=== PATIENT | male | born 1975 | race Two or more races ===

== ENCOUNTER 2021-05-30 16:53 | Inpatient (IN) | payer OTHER ==
[2021-05-30 20:01] VITALS: BMI 231.6
[2021-05-30] MEDS ORDERED: MELATONIN 5 MG TABLETS PO SCH (22:00)
[2021-05-30] MEDS ORDERED: guaiFENesin 200 MG/10 ML 10 ML UNIT-DOSE CUPS PO PRN (22:16)
[2021-05-30] MEDS ORDERED: P-EPHED 60MG/TRIPROLIDI 2.5MG TABLET PO PRN (22:16)
[2021-05-30] MEDS ORDERED: MAGNESIUM CITRATE 300 ML BOTTLE PO PRN (22:16)
[2021-05-30] MEDS ORDERED: MAG HYDROX/AL HYDROX/SIMETH 30 ML UNIT-DOSE CUP PO PRN (22:16)
[2021-05-30] MEDS ORDERED: hydrOXYzine PAMOATE 25 MG CAPSULE (FP) PO PRN (22:16)
[2021-05-30] MEDS ORDERED: IBUPROFEN 400 MG TABLET (FP) PO PRN (22:16)
[2021-05-30] MEDS ORDERED: ACETAMINOPHEN 325 MG TABLET (FP) PO PRN (22:16)
[2021-05-30] MEDS ORDERED: LOPERAMIDE HCL 2 MG CAPSULE PO PRN (22:16)
[2021-05-30] MEDS ORDERED: MAGNESIUM HYDROX 2400MG/30ML ORAL SUSPENSION 30 ML CUP PO PRN (22:16)
[2021-05-31] MEDS ORDERED: TUBERCULIN PPD 5 TU/0.1ML VIAL ID ONE (01:11)
[2021-05-31] MEDS: PRENATAL VITAMINS W/ FOLIC ACID TABLET (FP) PO SCH (10:02)
[2021-05-31 10:46] LABS: HEMATOCRIT 33.6 % (35.4-49); HEMOGLOBIN 11.6 GM/dL (11.7-16.9); MCHC 34.6 g/dl (32.0-35.9); MEAN CELL VOLUME 92.4 fl (80-96); MEAN PLT VOLUME 8.8 fl (7.5-11.1); PLATELET COUNT 257 10^3/uL (134-434); RBC 3.64 M/mm3 (4.00-5.60); RDW 14.9 % (11.9-15.9)
[2021-05-31 10:51] LABS: PH,URINE 6.5 (5.0-8.0); URINE APPEARANCE CLEAR; URINE BILIRUBIN NEGATIVE (NEGATIVE); URINE COLOR YELLOW; URINE GLUCOSE (UA) NEGATIVE (NEGATIVE); URINE KETONE NEGATIVE (NEGATIVE); URINE LEUK ESTERASE NEGATIVE (NEGATIVE); URINE NITRITE NEGATIVE (NEGATIVE); URINE PROTEIN NEGATIVE (NEGATIVE)
[2021-05-31 11:06] LABS: CREATININE 0.8 mg/dL (0.55-1.3)
[2021-05-31 11:07] LABS: TOT PROT 6.4 g/dl (6.4-8.2)
[2021-05-31 11:08] LABS: BILIRUBIN,TOTAL 0.2 mg/dL (0.2-1)
[2021-05-31 11:12] LABS: BLOOD UREA NITROGEN 15.1 mg/dL (7-18)
[2021-05-31 11:14] LABS: CALCIUM 8.5 mg/dL (8.5-10.1)
[2021-05-31] MEDS: BICTEGRAV/EMTRICIT/TENOFOV (BIKTARVY) 50-200-25 MG TABLET PO SCH (12:02)
[2021-05-31] MEDS ORDERED: BACLOFEN 10 MG TABLET (FP) PO PRN (15:54)
[2021-05-31] MEDS: THIAMINE HCL 100 MG TABLET (FP) PO SCH (21:11)
[2021-05-31] MEDS: QUEtiapine FUMARATE 50 MG TABLET PO SCH (21:12)
[2021-05-31] MEDS: TOPIRAMATE 100 MG TABLET PO SCH (21:14)
[2021-06-01] MEDS: BICTEGRAV/EMTRICIT/TENOFOV (BIKTARVY) 50-200-25 MG TABLET PO SCH (09:00)
[2021-06-01] MEDS: TOPIRAMATE 100 MG TABLET PO SCH ×2 (09:49→21:04)
[2021-06-01] MEDS: PANTOPRAZOLE 40 MG TABLET PO SCH (09:49)
[2021-06-01] MEDS: PRENATAL VITAMINS W/ FOLIC ACID TABLET (FP) PO SCH (09:49)
[2021-06-01] MEDS: THIAMINE HCL 100 MG TABLET (FP) PO SCH (21:04)
[2021-06-01] MEDS: QUEtiapine FUMARATE 50 MG TABLET PO SCH (21:05)
[2021-06-02] MEDS: BICTEGRAV/EMTRICIT/TENOFOV (BIKTARVY) 50-200-25 MG TABLET PO SCH (08:43)
[2021-06-02] MEDS: PANTOPRAZOLE 40 MG TABLET PO SCH (10:08)
[2021-06-02] MEDS: PRENATAL VITAMINS W/ FOLIC ACID TABLET (FP) PO SCH (10:08)
[2021-06-02] MEDS: TOPIRAMATE 100 MG TABLET PO SCH ×2 (11:29→21:34)
[2021-06-02] MEDS: QUEtiapine FUMARATE 50 MG TABLET PO SCH (21:33)
[2021-06-02] MEDS: THIAMINE HCL 100 MG TABLET (FP) PO SCH (21:34)
[2021-06-03] MEDS: BICTEGRAV/EMTRICIT/TENOFOV (BIKTARVY) 50-200-25 MG TABLET PO SCH (08:29)
[2021-06-03] MEDS: PANTOPRAZOLE 40 MG TABLET PO SCH (10:12)
[2021-06-03] MEDS: TOPIRAMATE 100 MG TABLET PO SCH ×2 (10:12→21:24)
[2021-06-03] MEDS: PRENATAL VITAMINS W/ FOLIC ACID TABLET (FP) PO SCH (10:12)
[2021-06-03] MEDS: THIAMINE HCL 100 MG TABLET (FP) PO SCH (21:24)
[2021-06-03] MEDS: QUEtiapine FUMARATE 50 MG TABLET PO SCH (21:24)
[2021-06-04] MEDS: BICTEGRAV/EMTRICIT/TENOFOV (BIKTARVY) 50-200-25 MG TABLET PO SCH (07:30)
[2021-06-04] MEDS: PRENATAL VITAMINS W/ FOLIC ACID TABLET (FP) PO SCH (09:40)
[2021-06-04] MEDS: TOPIRAMATE 100 MG TABLET PO SCH ×2 (09:40→21:36)
[2021-06-04] MEDS: PANTOPRAZOLE 40 MG TABLET PO SCH (09:40)
[2021-06-04 10:09] LABS: SARS-CoV-2 NAA Not Detected (Not Detected)
[2021-06-04] MEDS: THIAMINE HCL 100 MG TABLET (FP) PO SCH (21:36)
[2021-06-04] MEDS: QUEtiapine FUMARATE 50 MG TABLET PO SCH (21:38)
[2021-06-05] MEDS: BICTEGRAV/EMTRICIT/TENOFOV (BIKTARVY) 50-200-25 MG TABLET PO SCH (07:03)
[2021-06-05] MEDS: PANTOPRAZOLE 40 MG TABLET PO SCH (10:04)
[2021-06-05] MEDS: TOPIRAMATE 100 MG TABLET PO SCH ×2 (10:04→21:17)
[2021-06-05] MEDS: PRENATAL VITAMINS W/ FOLIC ACID TABLET (FP) PO SCH (10:04)
[2021-06-05] MEDS: QUEtiapine FUMARATE 50 MG TABLET PO SCH (21:17)
[2021-06-05] MEDS: THIAMINE HCL 100 MG TABLET (FP) PO SCH (21:17)
[2021-06-06] MEDS: BICTEGRAV/EMTRICIT/TENOFOV (BIKTARVY) 50-200-25 MG TABLET PO SCH (07:20)
[2021-06-06] MEDS: PRENATAL VITAMINS W/ FOLIC ACID TABLET (FP) PO SCH (10:06)
[2021-06-06] MEDS: TOPIRAMATE 100 MG TABLET PO SCH ×2 (10:07→21:22)
[2021-06-06] MEDS: PANTOPRAZOLE 40 MG TABLET PO SCH (10:07)
[2021-06-06] MEDS: THIAMINE HCL 100 MG TABLET (FP) PO SCH (21:22)
[2021-06-06] MEDS: QUEtiapine FUMARATE 50 MG TABLET PO SCH (21:23)
[2021-06-07] MEDS: BICTEGRAV/EMTRICIT/TENOFOV (BIKTARVY) 50-200-25 MG TABLET PO SCH (07:01)
[2021-06-07] MEDS: PRENATAL VITAMINS W/ FOLIC ACID TABLET (FP) PO SCH (10:04)
[2021-06-07] MEDS: PANTOPRAZOLE 40 MG TABLET PO SCH (10:04)
[2021-06-07] MEDS: TOPIRAMATE 100 MG TABLET PO SCH ×2 (10:04→22:19)
[2021-06-07] MEDS: THIAMINE HCL 100 MG TABLET (FP) PO SCH (22:19)
[2021-06-07] MEDS: QUEtiapine FUMARATE 50 MG TABLET PO SCH (22:19)
[2021-06-08] MEDS: BICTEGRAV/EMTRICIT/TENOFOV (BIKTARVY) 50-200-25 MG TABLET PO SCH (07:14)
[2021-06-08] MEDS: TOPIRAMATE 100 MG TABLET PO SCH ×2 (09:41→21:16)
[2021-06-08] MEDS: PRENATAL VITAMINS W/ FOLIC ACID TABLET (FP) PO SCH (09:41)
[2021-06-08] MEDS: PANTOPRAZOLE 40 MG TABLET PO SCH (09:41)
[2021-06-08] MEDS: QUEtiapine FUMARATE 50 MG TABLET PO SCH (21:16)
[2021-06-08] MEDS: THIAMINE HCL 100 MG TABLET (FP) PO SCH (21:16)
[2021-06-09] MEDS: BICTEGRAV/EMTRICIT/TENOFOV (BIKTARVY) 50-200-25 MG TABLET PO SCH (07:23)
[2021-06-09] MEDS: PRENATAL VITAMINS W/ FOLIC ACID TABLET (FP) PO SCH (09:48)
[2021-06-09] MEDS: PANTOPRAZOLE 40 MG TABLET PO SCH (09:48)
[2021-06-09] MEDS: TOPIRAMATE 100 MG TABLET PO SCH ×2 (09:49→21:45)
[2021-06-09] MEDS: THIAMINE HCL 100 MG TABLET (FP) PO SCH (21:45)
[2021-06-09] MEDS: QUEtiapine FUMARATE 50 MG TABLET PO SCH (21:45)
[2021-06-10] MEDS: BICTEGRAV/EMTRICIT/TENOFOV (BIKTARVY) 50-200-25 MG TABLET PO SCH (07:01)
[2021-06-10] MEDS: PANTOPRAZOLE 40 MG TABLET PO SCH (09:37)
[2021-06-10] MEDS: PRENATAL VITAMINS W/ FOLIC ACID TABLET (FP) PO SCH (09:37)
[2021-06-10] MEDS: TOPIRAMATE 100 MG TABLET PO SCH ×2 (09:37→21:25)
[2021-06-10] MEDS: THIAMINE HCL 100 MG TABLET (FP) PO SCH (21:25)
[2021-06-10] MEDS: QUEtiapine FUMARATE 50 MG TABLET PO SCH (21:25)
[2021-06-11] MEDS: BICTEGRAV/EMTRICIT/TENOFOV (BIKTARVY) 50-200-25 MG TABLET PO SCH (07:00)
[2021-06-11] MEDS: PANTOPRAZOLE 40 MG TABLET PO SCH (09:46)
[2021-06-11] MEDS: PRENATAL VITAMINS W/ FOLIC ACID TABLET (FP) PO SCH (09:46)
[2021-06-11] MEDS: TOPIRAMATE 100 MG TABLET PO SCH ×2 (09:46→21:15)
[2021-06-11] MEDS: THIAMINE HCL 100 MG TABLET (FP) PO SCH (21:16)
[2021-06-11] MEDS: QUEtiapine FUMARATE 50 MG TABLET PO SCH (21:16)
[2021-06-12] MEDS: BICTEGRAV/EMTRICIT/TENOFOV (BIKTARVY) 50-200-25 MG TABLET PO SCH (07:03)
[2021-06-12] MEDS: PRENATAL VITAMINS W/ FOLIC ACID TABLET (FP) PO SCH (10:16)
[2021-06-12] MEDS: PANTOPRAZOLE 40 MG TABLET PO SCH (10:16)
[2021-06-12] MEDS: TOPIRAMATE 100 MG TABLET PO SCH ×2 (10:16→21:38)
[2021-06-12] MEDS: THIAMINE HCL 100 MG TABLET (FP) PO SCH (21:38)
[2021-06-12] MEDS: QUEtiapine FUMARATE 50 MG TABLET PO SCH (21:38)
[2021-06-13 06:32] VITALS: BP 101/68; PULSE 89; TEMP 96.8
[2021-06-13] MEDS: BICTEGRAV/EMTRICIT/TENOFOV (BIKTARVY) 50-200-25 MG TABLET PO SCH (07:10)
[2021-06-13] MEDS: TOPIRAMATE 100 MG TABLET PO SCH (09:28)
[2021-06-13] MEDS: PRENATAL VITAMINS W/ FOLIC ACID TABLET (FP) PO SCH (09:28)
[2021-06-13] MEDS: PANTOPRAZOLE 40 MG TABLET PO SCH (09:28)
== END 2021-06-13 09:30 | disposition home or self-care (01) | DRG 774 ==
LOC: YASAS 16:53 → Y3E 23:32
PROVIDERS: ADMIT Allergy & Immunology; ATTEND Allergy & Immunology
PROC: HZ2ZZZZ Detoxification Services for Substance Abuse Treatment (ICD-10-PCS; principal; 2021-05-30)
DX: F10.20 Alcohol dependence, uncomplicated (principal); F14.20 Cocaine dependence, uncomplicated; F12.20 Cannabis dependence, uncomplicated; F19.24 Other psychoactive substance dependence with psychoactive substance-induced mood disorder; F41.9 Anxiety disorder, unspecified; F32.A Depression, unspecified; B20 Human immunodeficiency virus [HIV] disease; K21.9 Gastro-esophageal reflux disease without esophagitis; Z62.810 Personal history of physical and sexual abuse in childhood; Z87.891 Personal history of nicotine dependence; Z88.0 Allergy status to penicillin; Z59.01 Sheltered homelessness
CPT/HCPCS: 36415; 80053; 81003; 85027; 86780; C9803-CS; U0003; U0005